=== PATIENT | female | born 2005 | race Caucasian/White ===

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

== ENCOUNTER 2024-08-28 09:16 | Emergency (ER) | payer BC ==
--- OUTSIDE RECORDS SUMMARY | 2024-08-28 09:19 | XMS REPORT | Continuity of Care Document ---
Author Name Unknown Address [address] [facility] [address] [place] [address] [facility] thconnect Address [address] [facility] [address] [place] [address] Care Team Providers Care Group Billing Coordinator Name Role Phone Pcp, Patient Does Not Have A Primary Care Physic alfredo Georges Esparza PA-C Attending Clinician + GEORGES ESPARZA Attending Clinician Unavailable GEORGES ESPARZA Attending Clinician Unavailable Ken Johnston Attending Clinician + KEN NOEL Attending Clinician Unavailable Doctor Unassigned, [place] Attending Clinician U JUAN ANTONIO Pruett Attending Clinician UnavailJuan Antonio Evans MD Attending Clinician + Lab, Ang - Db Attending Clinician Unavailable Payers Payer Name Policy Type Policy Number Effective Date Expirati on Date Source Allergies, Adverse Reactions, Alerts Allergy Name Allergy Type Status Severity Reaction(s) Onset Date Inactive Date Treating Clinician Comments Source NO KNOWN ALLERGIE S Drug Class Active [facility] Social History Social Habit Start Date Stop Date Quantity Comments Source Gender identity [facility] History of Social function 2024-05-19 00:00:00 2024-05-19 00:00:00 [facility] Sex assigned at 2005 00:00:00 2005 00:00:00 [facility] Smoking Status Start Date Stop Date Source Tobacco smoking consumption unknown [facility] Medications Ordered Medication Name Filled Medication Name Start Date Stop Date Current Medication? Ordering Clinician Indication Dosage Frequency Signature (SIG) Comments Components Source traMADoL 50 mg tablet 01-07 00:00: 00 01-15 04:59 :00 No 4647 50mg Take 1 tablet by mouth every 6 (six) hours as needed for Pain (scale 4-6) for up to 7 days. Indication s: acute pain [facility] Vital Signs Vital Name Observation Time Observation Value Comments S ource Systolic blood pressure 2024-05-19 16:58:00 137 mm[Hg] [facility] Diastolic blood pressure 2024-05-19 16:58:00 85 mm[Hg] [facility] Heart rate 2024-05-19 16:58:00 67 /[facility] Respiratory rate 2024-05-19 16:58:00 18 /min [facility] Body height 2024-05-19 16:58:00 172.7 cm [facility] Body weight 2024-05-19 16:58:00 121.564 kg [facility] BMI 2024-05-19 16:58:00 40.75 kg/m2 [facility] Oxygen saturation in Arterial blood by Pulse oximetry 2024-05-19 16:58:00 99 /min [facility] Body weight 2023-01-22 15:39:00 108.863 kg [facility] Systolic blood pressure 2022-12-31 18:12:00 120 mm[Hg] [facility] Diastolic blood pressure 2022-12-31 18:12:00 86 mm[Hg] [facility] Heart rate 2022-12-31 18:12:00 114 /min [facility] Body height 2022-12-31 18:12:00 172.7 cm [facility] Body weight 2022-12-31 18:12:00 108.863 kg [facility] BMI 2022-12-31 18:12:00 36.49 kg/m2 [facility] Body mass index (BMI) [Percentile] Per age and sex 2022-12-31 18:12:00 98.07 % [facility] Procedures Procedure Date / Time Performed Performing Clinicia n Source XR ANKLE 3+ VW LEFT 2023-02-20 13:21:39 Ken Noel [facility] ASSIGNMENT OF BENEFITS 2023-01-22 15:04:22 Docto r Unassigned, [place] [facility] DSU PRE-OP 2022-12-31 05:01:00 Doctor Unass igned, [place] [facility] Encounters Start Date/Time End Date/Time Encounter Type Admission Type Attending [facility] Facility Care Department Encounter ID Source 2024-06-06 00:00:00 2024-06-06 11:53:41 [facility] 1..840.114 350.1.13.10 4.2.7.2.686 [id number] [facility] 2024-05-19 11:18:29 2024-05-19 23:59:00 Hospital Encounter [facility] 1..840.114 350.1.13.10 4.2.7.2.686 [id number] [facility] 2024-05-19 11:00:00 2024-05-19 11:56:49 Outpatient R [facility] [id number] [facility] 2024-05-19 11:00:00 2024-05-19 11:56:49 [facility] 1..840.114 350.1.13.10 4.2.7.2.686 [id number] [facility] 2023-02-20 08:10:00 2023-02-20 23:59:00 Hospital Encounter Ken Noel [facility] 1..840.114 350.1.13.10 4.2.7.2.686 [id number] [facility] 2023-02-20 08:00:00 2023-02-20 08:33:34 Outpatient R [facility] [id number] [facility] 2023-02-20 08:00:00 2023-02-20 08:15:00 Office Visit Ke[facility] 1.2.840.114 350.1.13.10 4.2.7.2.686 [id number] [facility] 2023-01-22 11:05:00 2023-01-22 23:59:00 Outpatient R [facility] [id number] [facility] 2023-01-22 11:05:00 2023-01-22 23:59:00 [facility] 1..840.114 350.1.13.10 4.2.7.2.686 [id number] [facility] 2023-01-22 10:30:00 2023-01-22 10:45:00 Office Visit Keyla [facility] 1..840.114 350.1.13.10 4.2.7.2.686 [id number] [facility] 2023-01-22 00:00:00 2023-01-22 00:00:00 Orders Only Doctor Unassigned, [place] [facility] 1..840.114 350.1.13.10 4.2.7.2.686 [id number] [facility] 2023-01-21 13:15:00 2023-01-21 13:15:00 Outpatient R [facility] [id number] [facility] 2023-01-14 15:15:00 2023-01-14 15:15:00 Outpatient R JUAN ANTONIO [facility]ALE[facility] [id number] [facility] 2023-01-07 20:22:00 2023-01-07 23:59:00 Hospital Encounter Juan Antonio Galeana [facility] 1.2.840.114 350.1.13.10 4.2.7.2.686 [id number] [facility] 2023-01-07 00:00:00 2023-01-07 23:59:00 Outpatient R JUAN ANTONIO GALEANA [facility] [id number] [facility] 2023-01-07 00:00:00 2023-01-07 00:00:00 Telephone Galeana Juan Antonio [facility] 1.2.840.114 350.1.13.10 4.2.7.2.686 [id number] [facility] 2022-12-31 14:30:00 2022-12-31 14:45:00 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 Visit Lab, Obi Noel [facility] 1.2.840.114 350.1.13.10 4.2.7.2.686 [id number] [facility] 2022-12-31 13:00:00 2022-12-31 14:25:21 Office Visit Keyla [facility] 1.2.840.114 350.1.13.10 4.2.7.2.686 [id number] [facility] 2022-12-31 13:00:00 2022-12-31 14:25:21 [facility] [id number] [facility] 2022-12-31 00:00:00 2022-12-31 00:00:00 Orders Only Doctor Unassigned, [place] [facility] 1.2.840.114 350.1.13.10 4.2.7.2.686 [id number] [facility] 2022-12-31 00:00:00 2022-12-31 00:00:00 Telephone Ken Noel [facility] 1.2.840.114 350.1.13.10 4.2.7.2.686 [id number] [facility] Notes Date/Time Note Provider Source 2024-06-06 11:53:08 Updated her work note as requested. Patient will swing by to pick it up. 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 RING PROFESSIONAL Sharee Acosta [facility]
[2024-08-28 10:10] LABS: Influenza A Ag Negative; Influenza B Ag Negative
[2024-08-28 10:11] LABS: SARS-CoV-2 Antigen Rapid Res Positive (Negative)
--- NOTE | 2024-08-28 10:15 | ER ---
Nurse's Notes [facility] Name: Karyn Galo Age: 19 yrs Sex: Female : 2005 Arrival Date: 08/28/2024 Time: 09:16 Bed 11 Private MD: Diagnosis: SARS-associated coronavirus as the cause of diseases classified elsewhere Presentation: 08/28 09:28 Chief complaint: Cough, congestion, chills, nausea, weakness, and low grade fever x 3 hb days. Coronavirus screen: Client presents with at least one sign or symptom that may indicate coronavirus-19. Provider contacted for isolation considerations. Ebola Screen: No symptoms or risks identified at this time. Initial Sepsis Screen: Does the patient meet any 2 criteria? No. Patient's initial sepsis screen is negative. Does the patient have a suspected source of infection? No. Patient's initial sepsis screen is negative. Risk Assessment: Do you want to hurt yourself or someone else? Patient reports no desire to harm self or others. Onset of symptoms was August 26, 2024. 09:28 Method Of Arrival: Ambulatory hb 09:28 Acuity: JESUSITA 4 hb Historical: - Allergies: 09:29 No Known Allergies; hb - Home Meds: 09:29 None [Active]; hb - PMHx: 09:29 Anxiety; hb - PSHx: 09:29 L foot; hb - Immunization history:: Adult Immunizations up to date. - Infectious Disease History:: Denies. - Social history:: Smoking status: Patient denies any tobacco usage or history of. Vital Signs: 09:28 BP 129 / 85; Pulse 75; Resp 16; Pulse Ox 98% on R/A; Weight 108.86 kg; Height 5 ft. 8 hb in. ; Pain 5/10; 09:28 Body Mass Index 36.49 (108.86 kg, 172.72 cm) hb 09:28 Pain Scale: Adult hb ED Course: 09:19 Patient arrived in ED. mr 09:19 Jaki Dumont FNP-C is PHCP. kb 09:19 Ahsan Etienne MD is Attending Physician. kb 09:29 Triage completed. hb 09:30 Arm band placed on. hb 10:32 Micki Champagne, MARY is Primary Nurse. hb Administered Medications: No medications were administered Outcome: 10:14 Discharge ordered by . jeramie 10:32 Patient left the ED. hb Signatures: Jaki Dumont, KATELYN-C SUPERINTENDENT COLLIERY-Angela Braden, Reg Reg mr Micki Champagne, RN RN hb
--- NOTE | 2024-08-28 10:15 | EDPHYS ---
Physician Documentation [facility] Name: Karyn Galo Age: 19 yrs Sex: Female : 2005 Arrival Date: 08/28/2024 Time: 09:16 Bed 11 Private MD: ED Physician Ahsan Etienne HPI: 08/28 09:29 This 19 yrs old Female presents to ER via Ambulatory with complaints of Flu Symptoms. kb 09:29 Pt is a 19 year old female who presents for a 3 day history of cough, congestion, kb chills, low grade fever and weakness. Reports intermittent nausea, denies vomiting/diarrhea. States she has been around people at work with flu and covid. . Historical: - Allergies: 09:29 No Known Allergies; hb - Home Meds: 09:29 None [Active]; hb - PMHx: 09:29 Anxiety; hb - PSHx: 09:29 L foot; hb - Immunization history:: Adult Immunizations up to date. - Infectious Disease History:: Denies. - Social history:: Smoking status: Patient denies any tobacco usage or history of. ROS: 09:31 Constitutional: As per HPI kb Exam: 09:31 Constitutional: This is a well developed, well nourished patient who is awake, alert, kb and in no acute distress. Head/Face: Normocephalic, atraumatic. ENT: Moist Mucous membranes Cardiovascular: Regular rate Respiratory: Respirations even and unlabored. No increased work of breathing. Talking in full sentences Skin: Warm, dry with normal turgor. Normal color. MS/ Extremity: Pulses equal, no cyanosis. Neurovascular intact. Full, normal range of motion. Neuro: Awake and alert, GCS 15, oriented to person, place, time, and situation. Vital Signs: 09:28 BP 129 / 85; Pulse 75; Resp 16; Pulse Ox 98% on R/A; Weight 108.86 kg; Height 5 ft. 8 hb in. ; Pain 5/10; 09:28 Body Mass Index 36.49 (108.86 kg, 172.72 cm) hb 09:28 Pain Scale: Adult hb MDM: 09:19 Medical Screening Exam initiated kb 09:31 Data reviewed: vital signs, nurses notes. kb 10:14 Differential diagnosis: covid, flu, strep, uri. I considered the following discharge kb prescriptions or medication management in the emergency department I discussed and recommended Over The Counter medications, Antibiotics: At this time antibiotics are not recommended, Antivirals: At this time, antivirals are not recommended. Counseling: I had a detailed discussion with the patient and/or guardian regarding the historical points, exam findings, and any diagnostic results supporting the discharge/admit diagnosis, lab results, the need for outpatient follow up, a family practitioner, to return to the emergency department if symptoms worsen or persist or if there are any questions or concerns that arise at home. 08/28 09:29 Order name: Strep kb 08/28 09:29 Order name: SARS-COV-2 Antigen Rapid kb 08/28 09:32 Order name: COVID-19 Ag + Flu A+B Ag; Complete Time: 10:14 hb 08/28 10:04 Order name: Throat Culture EDMS Administered Medications: No medications were administered Disposition Summary: 08/28/24 10:14 Discharge Ordered Notes: Location: Home kb Condition: Stable kb Diagnosis - SARS-associated coronavirus as the cause of diseases classified elsewhere kb Followup: kb - With: Emergency Department - When: As needed - Reason: Worsening of condition Followup: kb - With: Private Physician - When: 2 - 3 days - Reason: Recheck today's complaints, Continuance of care, Re-evaluation by your physician Discharge Instructions: - Discharge Summary Sheet kb - COVID-19 kb - Viral Illness, Adult kb Forms: - Work release form kb - Medication Reconciliation Form kb - Antibiotic Education kb - Prescription Opioid Use kb - Patient Portal Instructions kb - Leadership Thank You Letter kb Addendum: 08/29/2024 12:39 Co-signature as Attending Physician, Ahsan Etienne MD I agree with the assessment and c machuca plan of care. Signatures: Dispatcher [employer] EDJaki Regalado, STUDENT DEVELOPMENT DEAN-C STUDENT DEVELOPMENT DEAN-Ahsan Jaeger MD MD cha Baxter, Heather, RN RN
[2024-08-28 10:39] VITALS: BP 129/85; O2SAT 98
== END 2024-08-28 10:32 | disposition home or self-care (01) ==
LOC: ER 09:16
DX: U07.1 COVID-19 (principal)
CPT/HCPCS: 36415; 87070; 87081; 87428; 99281